=== PATIENT | female | born 2000 | race Caucasian/White ===

== ENCOUNTER 2021-08-26 00:59 | Inpatient (IN) | payer BC ==
[2021-08-26] VITALS (33 sets, daily range): BP systolic 92–132; BP diastolic 50–88; PULSE 79–134; TEMP 97.6–99
[~2021-08-26] VITALS: Ht 152.4 cm; Wt 65.5 kg
--- NOTE | 2021-08-26 01:00 | NUR ---
0100- PT PRESENTS TO LDR COMPLAINING OF CONTRACTIONS AND POSSIBLE LEAKING AMNIOTIC FLUID, TO ROOM LR3 PER WHEELCHAIR, CHANGED INTO GOWN. 0109- EFM X2 APPLIED. PT STATES SHE HAS BEEN HAVING SOME WETNESS ALL DAY, CONTRACTIONS HAVE INTENSIFIED IN LAST 2 HOURS. IS ALSO HAVING SOME PINK TINGED DISCHARGE WHEN SHE WIPES. SHE REPORTS THAT SHE IS FEELING THE BABY MOVE. PT HAS JUST MOVED TO [place] IN LAST 2 WEEKS FROM [place]. SHE HAS NOT GOTTEN CARE HERE, BUT DOES HAVE A COPY OF HER RECORDS FROM [place]. VSS. 0115- AMNITRACE NEGATIVE. SVE BY THIS NURSE WITH BAG OF SYLVESTER PALPATED. DISCUSSED PLAN OF CARE FOR LABOR CHECK WITH PT AND HER BOYFRIEND BRIGHT. QUESTIONS ANSWERED. 0130- NURSING ADMISSION HISTORY AND ASSESSMENT COMPLETE. PT REPORTS THAT HER CONTRACTIONS ARE NOT BAD THEY WERE EARLIER. 0220- SVE BY THIS NURSE UNCHANGED. PT REPORTS HER CONTRACTIONS ARE ABOUT THE SAME. DISCUSSED POSSIBLE PLANS OF CARE. 0230- DR CHRISTY CALLED CHARTED. ORDERS RECEIVED. 0245- IV STARTED TO LEFT WRIST CHARTED. BLOOD DRAWN AND SENT TO LAB FOR HOLD. LR INFUSING. DISCUSSED PLAN OF CARE WITH PT FOR IV FLUIDS AND QUESTIONS ANSWERED. PT SEEMS MORE UNCOMFORTABLE AT THIS TIME. 0310- PT IS MORE UNCOMFORTABLE. STATE SHE IS FEELING SOME PRESSURE IN HER BOTTOM. SVE BY THIS NURSE -/-3 WITH BAG OF WATER STILL PALPATED. 0315- DR CHRISTY CALLED [facility]ART[facility], ORDERS RECEIVED FOR ADMISSION. 0330- CONSENTS SIGNED.
[2021-08-26] MEDS ORDERED: ZOFRAN 4MG T4 MG/TAB PO (01:38)
[2021-08-26] MEDS ORDERED: PRENATAL VITAMI1 T12 PO (01:38)
[2021-08-26] MEDS ORDERED: VALTREX1 GM PO (01:40)
[2021-08-26] MEDS ORDERED: PROZAC 10MG10 MG PO (01:41)
[2021-08-26 03:22] LABS: BASO # 0.1 K/mm3 (0.0-0.2); BASO % 0.3 % (0.0-2.0); EOS # 0.3 K/mm3 (0.0-0.7); EOS % 1.6 % (0.0-4.0); GRAN # 13.6 K/mm3 (1.4-6.5); GRAN % 78.5 % (42.2-75.2); LYMPH # 2.1 K/mm3 (1.2-3.4); MEAN CELL VOLUME 76 fl (80.0-95.0); MEAN CORPUSCULAR HGB CONC 33 g/dl (33.0-37.0); MEAN PLATELET VOLUME 10.2 fl (7.4-10.4); MONO # 1.2 K/mm3 (0.1-0.6); PLATELET COUNT 291 K/mm3 (130-400); REDCELL DISTRIBUTION WIDTH-CV 14.1 % (11.5-14.5)
[2021-08-26 03:33] LABS: HEMOGLOBIN 9.1 g/dl (12.0-15.0); MEAN CORPUSCULAR HEMOGLOBIN 25 pg (26-32)
--- NOTE | 2021-08-26 04:25 | NUR ---
0425- PT CALLS OUT WITH INCREASING PAIN AND REQUESTS IV PAIN MEDICATION. NURSE TO BEDSIDE FOR EVALUATION. SVE 6-7/100/-2 WITH BULGING BAG OF WATER. DISCUSSED WITH PT OPTIONS FOR PAIN MANAGEMENT. 0430- DR CHRISTY CALLED [facility]ARTED. ORDERS FOR NO IV PAIN MEDICATION, BUT OK TO PROCEED WITH EPIDURAL IF PT DESIRES. 0432- PT UPDATED WITH DR CHRISTY'S ORDERS. PT DOES WANT TO TRY FOR AN EPIDURAL. 0434- SYBIL DUNCAN NOTIFIED AND ON HER WAY.
--- NOTE | 2021-08-26 04:55 | NUR ---
0455- SYBIL LINE SERVICE SUPERVISOR HERE FOR EPIDURAL PLACEMENT. PT ASSISTED TO SITTING POSITION ON EDGE OF BED. SYBIL DISCUSSES RISKS AND BENEFITS AND ANSWERS PT QUESTIONS 0500- CSE DOSE GIVEN. PT TOLERATED WELL. 0505- EPIDURAL PROCEDURE COMPLETE AND PT POSITIONED IN LEFT LATERAL FOR COMFORT. PT TIRED AND ALREADY FEELING MORE COMFORTABLE. MONITORS ADJUSTED. 0520- MONITORS ADJUSTED. PT RESTING QUIETLY. 0538- MONITORS ADJUSTED. PT RESTING QUIETLY.
--- NOTE | 2021-08-26 06:20 | NUR ---
Bedside report received and patient resting and has no needs at this time, plan of care discussed. 0710: Patient comfortable with epidural and camarena catheter placed at this time. SVE-8/100/-1 and bulgy forebag noted. Patient left lateral with right leg resting in stirrup.
--- NOTE | 2021-08-26 08:30 | NUR ---
Dr. Garcia at [facility] and updated. 0855: Patient states feeling more pressure. SVE-9/100/0 and forebag noted. 0920: SVE 9-10/100/0 and forebag ruptures at this time with clear fluid noted. 0928: Patient feeling urge to push. SVE-10/100/+[address] Garcia called for delivery.
--- NOTE | 2021-08-26 09:30 | NUR ---
yFoley cathter removed and patient prepped for vaginal delivery. 0933: Dr. Garcia at bedside and pericare done. Plan of care discussed 0936: Patient pushes with contraction 0937: Spontaneous vaginal delivery of viable female, head followed by body. NCx2 reduced. Delayed cord clamping done and cord clamped x2 by physician and cut by significant other. to patients chest and Spencer Orellana RN assumes care of infant. Cord blood obtained. 0942: Spontaneous delivery of placenta and pitocin bolus started per protocol. Fundal massage done/firm/bleeding WNL Laceration repaired at this time. Pericare done, patient repositioned, ice pack to perineum, and plan of care disucssed.
[2021-08-27 01:25] VITALS: BP 94/49; PULSE 83; TEMP 97.5
[2021-08-27 05:30] VITALS: BP 99/60; PULSE 77; TEMP 98.3
[2021-08-27 07:30] VITALS: BP 103/52; PULSE 85; TEMP 97
--- NOTE | 2021-08-27 11:10 | NUR ---
1110-Social service to room per previous RN concern for discharge planning. Report recieved from previous RN patient new to area after moving twice recently and lives with family/friends. 1145-Significant other to nurses station upset with social service consult occurance not specifically at health and social care teacher. He did not feel it neccesary to have them follow up on their needs post discharge. This RN reassured him we were only trying to ensure a smooth transition home and make sure they have everything and resources for anything they might need help with. Verbalized understanding and appologies exchanged.
[2021-08-27 12:00] VITALS: BP 99/59; PULSE 63; TEMP 98.1
--- NOTE | 2021-08-27 12:30 | NUR ---
ZAY called to CASE to assist. Social service consult placed by staff stating 'maternal teenage , questionable housing situation, frequent moving, during , could use help with resources' ZAY met with patient and significant other Escobar present at time of discussion. Patient states that [facility] with family in [place], [place]. Patient states that she has a son who is currently at family members home in [place]. SW asked patient about obtaining resources such as a car seat, formula, etc. Patient states that she has all the items that she needs and has more than enough support. SW provided local document resources, and provided if any further assistance is needed to reach out to the case manangment team. Nothing further.
[2021-08-27] MEDS ORDERED: IBU800 M1 PO (14:15)
--- NOTE | 2021-08-27 15:30 | NUR ---
1530-Reviewed discharge instructions with patient. Patient denies questions. Instructed on need to call and schedule 6 week apt. Verbalzied understanding. 1540-Ambulatory off unit with infant and significant other.
== END 2021-08-27 15:40 | disposition home or self-care (01) | DRG 807 ==
LOC: LDRO 00:59 → LDR 01:19 → LDRO 03:13 → LDR 03:14 → OB 11:30
PROVIDERS: ADMIT Student in an Organized Health Care Education/Training Program
PROC: 10E0XZZ Delivery of Products of Conception, External Approach (ICD-10-PCS; principal; 2021-08-26)
PROC: 0UQMXZZ Repair Vulva, External Approach (ICD-10-PCS; 2021-08-26)
DX: O69.81X0 Labor and delivery complicated by cord around neck, without compression, not applicable or unspecified (principal); Z37.0 Single live birth; O70.0 First degree perineal laceration during delivery; Z3A.38 38 weeks gestation of pregnancy
CPT/HCPCS: J2590; J3010; J7120

== ENCOUNTER 2021-09-15 11:50 | Emergency (ER) | payer MEDICAID ==
[~2021-09-15] VITALS: Ht 152.4 cm; Wt 59.1 kg
[~2021-09-15 11:50] MED LIST: IBU800 M1 PO; PRENATAL VITAMI1 T12 PO; PROZAC 10MG10 MG PO; VALTREX1 GM PO; ZOFRAN 4MG T4 MG/TAB PO
[2021-09-15 11:58] VITALS: TEMP 98.5
[2021-09-15 12:22] LABS: COLLECTION METHOD CLEAN CATCH
[2021-09-15 12:26] LABS: BASO # 0.1 K/mm3 (0.0-0.2); BASO % 0.5 % (0.0-2.0); EOS # 0.2 K/mm3 (0.0-0.7); EOS % 1.3 % (0.0-4.0); GRAN # 15.2 K/mm3 (1.4-6.5); GRAN % 84.4 % (42.2-75.2); HEMOGLOBIN 11.6 g/dl (12.0-15.0); LYMPH # 1.8 K/mm3 (1.2-3.4); LYMPH % 9.8 % (20.0-51.0); MEAN CELL VOLUME 76 fl (80.0-95.0); MEAN CORPUSCULAR HEMOGLOBIN 24 pg (26-32); MEAN CORPUSCULAR HGB CONC 32 g/dl (33.0-37.0); MEAN PLATELET VOLUME 10.6 fl (7.4-10.4); MONO # 0.7 K/mm3 (0.1-0.6); MONO % 3.6 % (1.7-9.3); PLATELET COUNT 321 K/mm3 (130-400); RED BLOOD COUNT 4.87 M/mm3 (4.10-5.30); REDCELL DISTRIBUTION WIDTH-CV 14.2 % (11.5-14.5)
[2021-09-15 12:27] LABS: HEMATOCRIT 36.8 % (35.0-45.0)
[2021-09-15 12:30] LABS: PH 5 (5-8); SQUAMOUS EPITHELIAL 0-2 /hpf (0-10); URINE APPEARANCE Clear (CLEAR/HAZY); URINE BACTERIA None Seen /hpf (NONE SEEN); URINE BILIRUBIN Negative (NEGATIVE); URINE BLOOD Negative (NEGATIVE); URINE COLOR Straw (YELLOW); URINE GLUCOSE Negative (NEGATIVE); URINE KETONE Negative (NEGATIVE); URINE LEUKOCYTE ESTERASE Negative (NEGATIVE); URINE NITRATE Negative (NEGATIVE); URINE PROTEIN(semi-quant) Negative (NEGATIVE); URINE UROBILINOGEN Negative (NEGATIVE)
[2021-09-15 12:47] LABS: ALBUMIN 3.8 gm/dL (3.5-5.0); BILIRUBIN,TOTAL 0.5 mg/dL (0.2-1.2); C-REACTIVE PROTEIN 0.26 mg/dL (0.00-0.50); CALCIUM 9.4 mg/dL (8.4-10.2); CREATININE, serum 0.75 mg/dL (0.57-1.11); POTASSIUM 3.9 mmol/L (3.5-4.5); TOTAL PROTEIN 7.7 gm/dL (6.2-8.1)
[2021-09-15] MEDS ORDERED: PERCOCET 325 MG1 TA2 PO (14:25)
[2021-09-15] MEDS ORDERED: CEPHALEXIN500 M1 PO (14:25)
[2021-09-15 14:46] VITALS: BP 108/68; PULSE 69
== END 2021-09-15 14:46 | disposition home or self-care (01) ==
LOC: COL.ER 11:50
PROVIDERS: Nurse Practitioner
DX: R10.30 Lower abdominal pain, unspecified (principal); Z28.310 Unvaccinated for COVID-19
CPT/HCPCS: Q9967